=== PATIENT | female | born 2000 | race Caucasian/White ===

== ENCOUNTER 2019-03-18 17:58 | Emergency (ER) | payer BC ==
[~2019-03-18] VITALS: Ht 175.3 cm; Wt 81.8 kg
[2019-03-18 18:13] VITALS: BP 144/89; TEMP 98.1
[2019-03-18] MEDS ORDERED: VYVANSE20 MG PO (20:08)
[2019-03-18] MEDS ORDERED: LEXAPRO20 MG PO (20:08)
[2019-03-18 21:15] VITALS: PULSE 92
== END 2019-03-18 21:17 | disposition home or self-care (01) ==
LOC: COL.ER 17:58
DX: S70.02XA Contusion of left hip, initial encounter (principal); F90.9 Attention-deficit hyperactivity disorder, unspecified type; F32.9 Major depressive disorder, single episode, unspecified; V00.131A Fall from skateboard, initial encounter; Y93.51 Activity, roller skating (inline) and skateboarding